=== PATIENT | male | born 1985 | race Caucasian/White ===

== ENCOUNTER 2019-06-14 07:47 | Emergency (ER) | payer SELFPAY ==
[~2019-06-14] VITALS: Ht 188 cm; Wt 104.5 kg
[2019-06-14 07:49] VITALS: Ht 188 cm; Wt 104.5 kg
[2019-06-14 08:17] LABS: BASOPHILS 0.1 % (0-2); HEMATOCRIT 46.6 % (42.0-54.0); HEMOGLOBIN 15.8 g/dL (13.5-17.5); IMMATURE GRANULOCYTES 0.2 % (0-5); LYMPHOCYTES 13.4 % (15-50); MCH 30.8 pg (26.0-34.0); MCHC 33.9 g/dL (31.0-37.0); MCV 90.8 fL (80.0-100.0); MEAN PLATELET VOLUME 10.4 fL (7.4-10.4); MONOCYTES 6.2 % (2-11); NEUTROPHILS 79.1 % (40-80); PLATELET COUNT 219 10x3/uL (130-400); RBC 5.13 10x6/uL (4.20-6.10); RDW 12.6 % (11.5-14.5); WBC 11.8 10x3/uL (4.8-10.8)
[2019-06-14 08:25] LABS: APTT 28.7 SECONDS (22.8-39.4); INR 0.99 (0.85-1.17); PROTIME 12.6 SECONDS (11.6-15.0)
[2019-06-14 08:31] LABS: ALBUMIN 3.8 g/dL (3.4-5.0); ALKALINE PHOSPHATASE 80 U/L (46-116); ALT (SGPT) 29 U/L (10-68); BILIRUBIN - TOTAL 0.33 mg/dL (0.2-1.3); CALC OSMOLALITY 284 mosm/kg (275-300); CALCIUM 8.7 mg/dL (8.5-10.1); CARBON DIOXIDE 28.7 mmol/L (21.0-32.0); CHLORIDE - SERUM 106 mmol/L (98-107); GLUCOSE 152 mg/dL (74-106); POTASSIUM - SERUM 4.9 mmol/L (3.5-5.1); PROTEIN - SERUM 7.2 g/dL (6.4-8.2); SODIUM 141 mmol/L (136-145); UREA NITROGEN 14 mg/dL (7-18); eGFR NON AFRICAN AMERICAN 90 mL/min (90-120)
[2019-06-14 08:41] LABS: CKMB 0.5 U/L (0.0-3.6); CREATINE KINASE 106 UL (21-232); TROPONIN-I < 0.017 ng/mL (0.000-0.060)
[2019-06-14 09:16] LABS: AMYLASE - SERUM 34 U/L (25-115); LIPASE 100 U/L (73-393)
[2019-06-14 09:40] LABS: APPEARANCE CLEAR (CLEAR); BILIRUBIN NEGATIVE (NEGATIVE); COLOR YELLOW (YELLOW); GLUCOSE NEGATIVE (NEGATIVE); KETONE NEGATIVE (NEGATIVE); NITRITE NEGATIVE (NEGATIVE); PROTEIN NEGATIVE (NEGATIVE); UROBILINOGEN NORMAL (NORMAL)
[2019-06-14] MEDS ORDERED: IBUPROFEN800 MG PO (12:20)
[2019-06-14] MEDS ORDERED: CYCLOBENZAPRINE10 MG PO (12:20)
[2019-06-14] MEDS ORDERED: ACETAMINOPHEN500 M1 PO (12:20)
[2019-06-14 12:58] VITALS: BP 133/69
== END 2019-06-14 12:55 | disposition home or self-care (01) ==
LOC: D.ER 07:47
PROVIDERS: Family Medicine
DX: R07.9 Chest pain, unspecified (principal); M79.18 Myalgia, other site; I45.6 Pre-excitation syndrome